=== PATIENT | female | born 1980 | race Caucasian/White ===

== ENCOUNTER 2019-01-21 16:47 | Emergency (ER) | payer BC ==
[2019-01-21 17:22] VITALS: BP 103/71
[2019-01-21 17:38] LABS: Influenza A Molecular POSITIVE (Negative)
--- NOTE | 2019-01-21 17:39 | UC ---
FLU HPI - HPI Summary HPI Summary: 38-year-old female presents with 4-5 day of feeling hot and cold, fatigue, body aches, nasal congestion, runny nose, sore throat, and a dry nonproductive cough. Unsure of any fever. Denies ear pain, dysphagia, chest pain, shortness of breath, nausea, vomiting, or diarrhea. Patient did not get flu shot this year. - History of Current Complaint Chief Complaint: UCGeneralIllness Stated Complaint: FLU SYMPTOMS Time Seen by Provider: 01/21/19 17:25 Hx Last Menstrual Period: 01/29/16 Pain Intensity: 5 - Allergy/Home Medications Allergies/Adverse Reactions: Allergies Allergy/AdvReac Type Severity Reaction Status Date / Time No Known Allergies Allergy Verified 04/14/15 09:52 Home Medications: Home Medications ALPRAZolam TAB* [Xanax TAB*] 0.5 mg PO BEDTIME PRN 01/21/19 [History Confirmed 01/21/19] Citalopram TAB* [CeleXA TAB*] 40 mg PO DAILY 01/21/19 [History Confirmed ] Ibuprofen/Pseudoephedrine HCl [Advil Cold & Sinus] 1 cap PO ONCE 01/21/19 [ History Confirmed 01/21/19] Levocetirizine Dihydrochloride [Xyzal Allergy 24Hr] 5 mg PO DAILY 01/21/19 [ History Confirmed 01/21/19] PMH/Surg Hx/FS Hx/Imm Hx Previously Healthy: Yes Psychological History: Anxiety, Depression - Surgical History Surgical History: Yes Surgery Procedure, Year, and Place: appy,collar bone, Deviated Nasal Septum-2010 , 2 sinus surgeries - Family History Known Family History: Positive: Non-Contributory - Social History Occupation: Employed Full-time Lives: With Family Alcohol Use: Occasionally Substance Use Type: None Smoking Status (MU): Former Smoker Type: Cigarettes Amount Used/How Often: variable Length of Time of Smoking/Using Tobacco: 10 yrs Have You Smoked in the Last Year: Yes Review of Systems All Other Systems Reviewed And Are Negative: Yes Constitutional: Positive: Chills, Fatigue Skin: Negative: Rash Eyes: Negative: Drainage, Eye Redness ENT: Positive: Sore Throat, Nasal Discharge, Sinus Congestion. Negative: Ear Ache, Sinus Pain/Tenderness Respiratory: Positive: Cough. Negative: Shortness Of Breath Cardiovascular: Negative: Palpitations, Chest Pain Gastrointestinal: Negative: Abdominal Pain, Vomiting, Diarrhea, Nausea Genitourinary: Positive: Negative Musculoskeletal: Positive: Negative Neurological: Positive: Negative Is Patient Immunocompromised?: No Physical Exam - Summary Physical Exam Summary: GENERAL APPEARANCE: Well developed, well nourished, alert and cooperative, and appears to be in no acute distress. EYES: Conjunctiva clear. No drainage. Vision is grossly intact. EARS: External auditory canals and tympanic membranes clear, hearing grossly intact. NOSE: Mild-moderate nasal congestion with clear nasal discharge. THROAT: Mild pharyngeal erythema. No tonsilar inflammation, swelling, exudate, or lesions. Uvula midline. Oral cavity normal. Teeth and gingiva in good general condition. NECK: Neck supple, non-tender without lymphadenopathy. CARDIAC: Normal S1 and S2. No S3, S4 or murmurs. Rhythm is regular. There is no peripheral edema, cyanosis or pallor. Extremities are warm and well perfused. Capillary refill is less than 2 seconds. Peripheral pulses intact. LUNGS: Clear to auscultation without rales, rhonchi, wheezing or diminished breath sounds. ABDOMEN: Positive bowel sounds. Soft, nondistended, nontender. No guarding or rebound. No masses or hepatosplenomegally. MUSKULOSKELETAL: ROM intact to all extremities. No joint erythema or tenderness. Normal muscular development. Normal gait. SKIN: Skin normal color, texture and turgor with no lesions or eruptions. Triage Information Reviewed: Yes Vital Signs: Initial Vital Signs Temp 99.0 F 01/21/19 17:18 Pulse 77 01/21/19 17:18 Resp 15 01/21/19 17:18 BP 103/71 01/21/19 17:18 Pulse Ox 99 01/21/19 17:18 Vital Signs Reviewed: Yes Flu Course/Dx - Course Course Of Treatment: 38-year-old female presents with 4-5 day of feeling hot and cold, fatigue, body aches, nasal congestion, runny nose, sore throat, and a dry nonproductive cough. Unsure of any fever. Denies ear pain, dysphagia, chest pain, shortness of breath, nausea, vomiting, or diarrhea. Patient did not get flu shot this year. Afebrile. Vital signs stable. Exam reveals an elderly female in no acute distress with mild nasal congestion, mild pharyngeal erythema without tonsillar swelling or exudate, no cervical lymphadenopathy, clear bilateral breath sounds, a dry nonproductive cough, and otherwise unremarkable exam. Rapid flu test was positive for influenza A. Recommending symptomatic treatment as she is outside the window for treatment with Tamiflu. She is to follow-up with her primary care provider in 5-7 days if symptoms do not improve. Anticipatory guidance and warning symptoms were reviewed with the patient. Verbalizes understanding and agrees with plan of care. - Differential Dx/Diagnosis Differential Diagnosis/HQI/PQRI: Bronchitis, Influenza, Pneumonia, Upper Respiratory Infection Provider Diagnosis: Influenza A Discharge - Sign-Out/Discharge Documenting (check all that apply): Patient Departure All imaging exams completed and their final reports reviewed: No Studies - Discharge Plan Condition: Stable Disposition: HOME Patient Education Materials: Influenza (ED) Referrals: Piotr French [Primary Care Provider] - 5 Days (Follow up in 5-7 days if no improvement in symptoms.) Additional Instructions: Your flu test in the clinic today was positive for influenza A. Get plenty of rest. Drink plenty of fluids to avoid dehydration especially if you are running any fever. Take over the counter acetaminophen (Tylenol) or ibuprofen (Advil, Motrin) according to directions as needed for pain or fever. Use an over the counter decongestant such as Sudafed according to directions for congestion. Use salt water gargles several times a day if you have a sore throat. You may also use Chloraseptic spray or Cepacol lonzenges according to directions which contain a numbing medication and can provide some temporary relief from your sore throat. Follow up with your primary care provider in 5-7 days if symptoms persist. Seek immediate medical attention in the emergency room if you have fever greater than 100.5 F despite taking acetaminophen or ibuprofen, have chest pain , difficulty breathing, are unable to swallow, or have any worsening of symptoms. - Billing Disposition and Condition Condition: STABLE Disposition: Home
== END 2019-01-21 17:48 | disposition home or self-care (01) ==
LOC: UCCORT 16:47
DX: J10.1 Influenza due to other identified influenza virus with other respiratory manifestations (principal); F32.9 Major depressive disorder, single episode, unspecified; F41.9 Anxiety disorder, unspecified; Z79.899 Other long term (current) drug therapy; Z87.891 Personal history of nicotine dependence
CPT/HCPCS: 99211; G0463